=== PATIENT | male | born 1970 | race Caucasian/White ===

== ENCOUNTER → 2023-08-05 | Outpatient (CLI) | payer BC, SELFPAY ==
[2023-08-05 15:12] LABS: Amphetamine Urine VISTA NEGATIVE (<1000 ng/mL); Barbiturate Urine VISTA NEGATIVE (< 200 ng/mL); Benzodiazepine Urine VISTA NEGATIVE (< 200 ng/mL); Cocaine Urine VISTA NEGATIVE (< 300 ng/mL); Ecstacy Urine VISTA NEGATIVE (< 500 ng/mL); Methadone Urine VISTA NEGATIVE (< 300 ng/mL); PCP Urine VISTA NEGATIVE (< 25 ng/mL); THC Urine VISTA NEGATIVE (< 50 ng/mL); Vista UDS pH Range 6
== END | disposition home or self-care (01) ==
LOC: LAB 14:01
PROVIDERS: Referring Provider Anesthesiology; Visit Provider Anesthesiology
DX: M54.16 Radiculopathy, lumbar region (principal)
CPT/HCPCS: 80307

== ENCOUNTER → 2023-09-20 | Outpatient (CLI) | payer BC, SELFPAY ==
--- NOTE | 2023-09-20 15:31 | MRI_ITS ---
STUDY: MRI LUMBAR SPINE WITHOUT CONTRAST REASON FOR EXAM: Male, 52 years old. RADICULOPATHY, LBP, LEFT LEG PAIN TECHNIQUE: Standardized fat and water weighted pulse sequences were obtained in the sagittal and axial planes. COMPARISON: None FINDINGS: No evidence for acute fracture or subluxation. There are multiple scattered interosseous lipomatous deposits or hemangiomata T12-L1: Normal endplates. Normal disc height, desiccation and normal morphology. Normal bilateral facet joints. Normal central canal and bilateral lateral recesses. Normal bilateral intervertebral neural foramina. Normal lumbar lordosis. There is no substantial scoliosis. Normal conus medullaris that terminates at T12-L1 L1-2: Normal endplates. Normal disc height, hydration and morphology. Normal bilateral facet joints. Normal central canal and bilateral lateral recesses. Normal bilateral intervertebral neural foramina. L2-3: Normal endplates. Normal disc height, hydration and morphology. Normal bilateral facet joints. Normal central canal and bilateral lateral recesses. Normal bilateral intervertebral neural foramina. L3-4: Normal endplates. Normal disc height, desiccation mild annular bulge. Normal bilateral facet joints. Normal central canal and bilateral lateral recesses. Moderate bilateral neural foraminal stenosis. L4-5: Grade 1 spondylolisthesis Normal endplates. Normal disc height, desiccation and mild bulging of the annulus with small right foraminal disc protrusion and facet arthropathy and thickening of ligamenta flava slightly worse on the left Normal central canal and bilateral lateral recesses. Moderate bilateral neural foraminal stenosis L5-S1: Normal endplates. Normal disc height, desiccation mild annular bulge with small left posterolateral/foraminal disc protrusion mildly impinging upon the descending S1 nerve root. Facet arthropathy.. Normal central canal and bilateral lateral recesses. Moderate bilateral neural foraminal stenosis slightly worse on the left. Normal visualized sacral ala. Normal visualized paraspinous soft tissue structures. MRI/Spine Lumbar (Routine) IMPRESSION: No evidence for acute fracture or other significant bony pathology.. Multilevel spinal stenosis secondary to disc disease and bony hypertrophy Electronically Signed: Harley Son MD at 18:04 EDT ,
== END | disposition home or self-care (01) ==
LOC: MRI 15:25
PROVIDERS: Referring Provider Anesthesiology; Visit Provider Anesthesiology
DX: M54.17 Radiculopathy, lumbosacral region (principal)
CPT/HCPCS: 72148

== ENCOUNTER → 2023-09-27 | Outpatient (CLI) | payer BC, SELFPAY ==
--- NOTE | 2023-09-27 17:20 | RAD_ITS ---
STUDY: X-RAY - LUMBAR SPINE REASON FOR EXAM: Male, 52 years old. RADICULOPATHY TECHNIQUE: 4 view(s) of the lumbar spine were obtained. COMPARISON: None FINDINGS: Normal lumbar lordosis. Mild levoscoliosis of the thoracic lumbar spine. There is a normal alignment of the vertebrae. No subluxation on the flexion or extension views to suggest instability. Normal vertebral bodies and endplates. Normal disc space heights. There is multilevel facet hypertrophy in the lower lumbar spine. The soft tissue structures are unremarkable. RAD/L/S Spine Bending Flex/Ext IMPRESSION: 1. Mild levoscoliosis with degenerative disc disease. 2. No instability. Electronically Signed: Facundo Mcgowan MD at 23:33 EDT ,
== END | disposition home or self-care (01) ==
LOC: RAD 16:57
PROVIDERS: Referring Provider Anesthesiology; Visit Provider Anesthesiology
DX: M54.16 Radiculopathy, lumbar region (principal); M43.10 Spondylolisthesis, site unspecified
CPT/HCPCS: 72120

== ENCOUNTER → 2023-10-15 | Outpatient (CLI) | payer BC, SELFPAY ==
--- NOTE | 2023-10-15 08:09 | MRI_ITS ---
STUDY: MR PELVIS WITHOUT CONTRAST REASON FOR EXAM: Male, 52 years old. BUTTOCK PAIN,ISCHIOFEMORAL IMPINGEMENT -- SYMPTOMS APPEAR TO BE SCIATIC ORIENTATION TECHNIQUE: Standardized fat and water weighted pulse sequences were obtained in all 3 orthogonal planes. COMPARISON: None. FINDINGS: The bilateral sciatic notch and nerves are normal in size and morphology symmetrically without evidence of bright edema of the nerves or enlargement. There is no deep pelvic sidewall lymphadenopathy or masses or fluid collections or cysts and impinging on the sciatic notches or exiting nerve. The piriformis muscles are normal in size and morphology with no demonstrated enlargement/hypertrophy. No ascites is present. Normal urinary bladder. Normal visualized small intestine. There are multiple colonic diverticula of the sigmoid colon consistent with chronic diverticulosis. There is no pelvic fluid. There is no pelvic mass lesion or lymphadenopathy. Normal visualized pelvic arteries. Normal osseous structures. Normal abdominal wall. No marrow edema or fractures are present. No lytic or blastic lesions are seen. There is no evidence of avascular necrosis of the hips. Small bilateral hip joint effusions are present. Both hip joints are mildly narrowed The hip manohar are intact. Normal sacrum and pubic rami. Normal bilateral gluteal and upper thigh and hip muscles. No visualized trochanteric or iliopsoas bursitis. There is however mild insertional gluteal tendinosis with slight thinning/and edema at the greater trochanteric insertion sites. MRI/Pelvis (Routine) IMPRESSION: 1. No visualized trochanteric or iliopsoas bursitis. There is however mild insertional gluteal tendinosis with slight thinning/and edema at the greater trochanteric insertion sites. 2. The bilateral sciatic notch and nerves are normal in size and morphology symmetrically without evidence of bright edema of the nerves or enlargement. 3. Mildly narrowed bilateral hip joints with small effusions Electronically Signed: Bear Lewis MD at 16:09 EDT ,
== END | disposition home or self-care (01) ==
LOC: MRI 08:03
PROVIDERS: Referring Provider Anesthesiology; Visit Provider Anesthesiology
DX: G57.02 Lesion of sciatic nerve, left lower limb (principal)
CPT/HCPCS: 72195